=== PATIENT | male | born 1960 | race Caucasian/White ===

== ENCOUNTER 2018-05-08 12:37 | Inpatient (IN) | payer OTHER ==
[2018-05-08] MEDS: LIDOCAINE 2% VISC 15 ML CUP PO (13:33)
[2018-05-08] MEDS: OXYMETAZOLINE 0.05% 15 ML NAS SPRAY NASAL (13:33)
[2018-05-08] MEDS: SOD CHLORIDE 0.9% 1,000 ML IV (14:41)
[2018-05-08 14:54] LABS: ADD MAN DIFF? NO
[2018-05-08 14:58] LABS: WHITE BLOOD COUNT 9.2 10^3/ul (4.8-10.8)
[2018-05-08 14:59] LABS: BASOPHIL # 0.1 10^3/ul (0.0-0.1); BASOPHILS % 0.5 % (0.0-2.0); EOSINOPHILS % 0.2 % (0.0-7.0); HEMATOCRIT 38.6 % (42.0-52.0); HEMOGLOBIN 13.4 g/dl (14.0-18.0); MEAN CORPUSCULAR HGB CONC 34.7 g/dl (32.0-37.0); MEAN CORPUSCULAR VOLUME 95.1 fl (82.0-101.0); MEAN PLATELET VOLUME 9.9 fl (7.4-10.4); MONOCYTE # 0.6 10^3/ul (0.3-0.9); NEUTROPHIL # 4.6 10^3/ul (1.6-7.5); NEUTROPHILS % 50.1 % (39.0-77.0); PLATELET COUNT 225 10^3/UL (140-415); RED BLOOD COUNT 4.06 10^6/ul (4.70-6.10); RED CELL DISTRIBUTION WIDTH 12.9 % (11.5-14.5)
[2018-05-08] MEDS: ONDANSETRON 4 MG INJ IV ×2 (15:07→22:13)
[2018-05-08 15:19] LABS: ALANINE AMINOTRANSFERASE 42 IU/L (13-69); ALBUMIN 4.5 g/dl (3.3-4.9); ALBUMIN/GLOBULIN RATIO 1.07; ALKALINE PHOSPHATASE 117 IU/L (42-121); ANION GAP 21 (8-16); ASPARTATE AMINO TRANSFERASE 105 IU/L (15-46); BILIRUBIN,INDIRECT 0.7 mg/dl (0-1.1); BILIRUBIN,TOTAL 0.7 mg/dl (0.2-1.3); BLOOD UREA NITROGEN 17 mg/dl (7-20); CALCIUM 9.3 mg/dl (8.4-10.2); CARBON DIOXIDE 28 mmol/L (21-31); CHLORIDE 102 mmol/L (97-110); CREATININE 0.59 mg/dl (0.61-1.24); GLUCOSE 126 mg/dl (70-220); LIPASE 94 U/L (23-300); POTASSIUM 3.5 mmol/L (3.5-5.1); SODIUM 147 mmol/L (135-144); TOTAL PROTEIN 8.7 g/dl (6.1-8.1)
[2018-05-08] MEDS ORDERED: ACETAMINOPHEN 325 MG TAB PO (15:30)
[2018-05-08] MEDS ORDERED: ONDANSETRON 4 MG INJ IV (15:30)
[2018-05-08] MEDS ORDERED: NACL 0.9% 3 ML SYG IV (19:30)
[2018-05-08] MEDS ORDERED: DOCUSATE SODIUM 100 MG CAP PO (19:30)
[2018-05-08] MEDS: HYDROCODONE/APAP (5/325) TAB PO (21:23)
[2018-05-08] MEDS: 1/2 NS + KCL 20 MEQ 1,000 ML IV (21:24)
[2018-05-08] MEDS: ATENOLOL 25 MG TAB PO (21:24)
[2018-05-08] MEDS: morphine 2 MG INJ IV (23:25)
[2018-05-09] MEDS: HYDROCODONE/APAP (5/325) TAB PO (02:17)
[2018-05-09] MEDS: ONDANSETRON 4 MG INJ IV (02:20)
[2018-05-09] MEDS: LORAZEPAM 2 MG INJ IV (02:56)
[2018-05-09] MEDS: ACETAMINOPHEN 325 MG TAB PO ×2 (05:24→19:54)
[2018-05-09] MEDS: 1/2 NS + KCL 20 MEQ 1,000 ML IV ×2 (05:25→18:27)
[2018-05-09] MEDS ORDERED: OXYMETAZOLINE 0.05% 15 ML NAS SPRAY NASAL (06:00)
[2018-05-09] MEDS: PANTOPRAZOLE (EC) 40 MG TAB PO (06:24)
[2018-05-09 09:11] LABS: ADD MAN DIFF? NO
[2018-05-09 09:13] LABS: BASOPHILS % 0.1 % (0.0-2.0); HEMATOCRIT 33.7 % (42.0-52.0); HEMOGLOBIN 11.8 g/dl (14.0-18.0); LYMPHOCYTES # 1.7 10^3/ul (0.8-2.9); LYMPHOCYTES % 20.7 % (15.0-51.0); MEAN CORPUSCULAR HEMOGLOBIN 33.7 pg (29.0-33.0); MEAN CORPUSCULAR VOLUME 96.3 fl (82.0-101.0); MEAN PLATELET VOLUME 10.5 fl (7.4-10.4); MONOCYTE # 0.5 10^3/ul (0.3-0.9); MONOCYTES % 6.3 % (0.0-11.0); NEUTROPHIL # 5.8 10^3/ul (1.6-7.5); NEUTROPHILS % 72.2 % (39.0-77.0); PLATELET COUNT 198 10^3/UL (140-415); RED CELL DISTRIBUTION WIDTH 12.3 % (11.5-14.5)
[2018-05-09 09:13] LABS: WHITE BLOOD COUNT 8.1 10^3/ul (4.8-10.8)
[2018-05-09 09:32] LABS: HEMOGLOBIN A1C 5.7 % (0-5.9)
[2018-05-09] MEDS: METOCLOPRAMIDE 10 MG INJ IV (09:32)
[2018-05-09] MEDS: ATENOLOL 25 MG TAB PO ×2 (09:33→21:14)
[2018-05-09 10:00] LABS: ANION GAP 22 (8-16); BLOOD UREA NITROGEN 13 mg/dl (7-20); CALCIUM 9.1 mg/dl (8.4-10.2); CARBON DIOXIDE 26 mmol/L (21-31); CHLORIDE 96 mmol/L (97-110); CREATININE 0.55 mg/dl (0.61-1.24); GLUCOSE 155 mg/dl (70-220); POTASSIUM 3.6 mmol/L (3.5-5.1); SODIUM 140 mmol/L (135-144)
[2018-05-09 10:03] LABS: MAGNESIUM 0.9 mg/dl (1.7-2.5)
[2018-05-09 10:10] LABS: T3 UPTAKE 29.2 % (23.5-40.5); T4 (THYROXINE) 6.5 ug/dl (5.5-11.0)
[2018-05-09] MEDS: PANTOPRAZOLE IV 80 MG in SOD CHLORIDE 0.9% 100 ML IVPB (10:51)
[2018-05-09] MEDS: OCTREOTIDE 1 MG in SOD CHLORIDE 0.9% 95 ML IV (11:25)
[2018-05-09] MEDS: ONDANSETRON INJ 8 MG in DEXTROSE 5% 50 ML IV ×3 (11:30→21:19)
[2018-05-09] MEDS: PANTOPRAZOLE IV 80 MG in SOD CHLORIDE 0.9% 100 ML IV ×2 (11:42→20:27)
[2018-05-09 11:59] LABS: INR 1.11; PROTIME 14.5 Sec (11.9-14.9); PT RATIO 1.1
[2018-05-09 12:00] LABS: PARTIAL THROMBOPLASTIN TIME 30.9 Sec (25.0-35.0)
[2018-05-09 12:59] LABS: PLATELET COUNT 185 10^3/UL (140-415)
[2018-05-09] MEDS: MAGNESIUM SULFATE 3 GM in DEXTROSE 5% 100 ML IVPB (13:24)
[2018-05-09] MEDS ORDERED: morphine LIQ (10 MG/5 ML) CUP PO (19:00)
[2018-05-09] MEDS: DOCUSATE SODIUM 100 MG CAP PO ×2 (21:11→21:20)
[2018-05-09] MEDS: ZOLPIDEM 5 MG TAB PO (22:38)
[2018-05-10] MEDS: 1/2 NS + KCL 20 MEQ 1,000 ML IV (01:07)
[2018-05-10] MEDS: ONDANSETRON INJ 8 MG in DEXTROSE 5% 50 ML IV ×2 (03:30→08:59)
[2018-05-10] MEDS: PANTOPRAZOLE IV 80 MG in SOD CHLORIDE 0.9% 100 ML IV ×2 (06:35→17:34)
[2018-05-10] MEDS ORDERED: SUCCINYLCHOLINE CHLORIDE 100 MG/5 ML SYG IV (07:00)
[2018-05-10] MEDS ORDERED: ETOMIDATE 20 MG INJ (07:00)
[2018-05-10] MEDS: ATENOLOL 25 MG TAB PO ×2 (08:57→21:00)
[2018-05-10] MEDS: DOCUSATE SODIUM 100 MG CAP PO ×2 (08:57→21:20)
[2018-05-10 09:44] LABS: ADD MAN DIFF? NO
[2018-05-10 09:49] LABS: BASOPHILS % 0.3 % (0.0-2.0); HEMOGLOBIN 10.9 g/dl (14.0-18.0); LYMPHOCYTES % 14.9 % (15.0-51.0); MEAN CORPUSCULAR HEMOGLOBIN 33.3 pg (29.0-33.0); MEAN CORPUSCULAR HGB CONC 34.1 g/dl (32.0-37.0); MEAN CORPUSCULAR VOLUME 97.9 fl (82.0-101.0); MEAN PLATELET VOLUME 10.9 fl (7.4-10.4); MONOCYTE # 0.6 10^3/ul (0.3-0.9); MONOCYTES % 8.6 % (0.0-11.0); NEUTROPHIL # 4.9 10^3/ul (1.6-7.5); NEUTROPHILS % 75.7 % (39.0-77.0); PLATELET COUNT 162 10^3/UL (140-415); RED BLOOD COUNT 3.27 10^6/ul (4.70-6.10); RED CELL DISTRIBUTION WIDTH 12.3 % (11.5-14.5)
[2018-05-10 09:49] LABS: WHITE BLOOD COUNT 6.5 10^3/ul (4.8-10.8)
[2018-05-10] MEDS: LORAZEPAM 2 MG INJ IV ×3 (09:54→14:02)
[2018-05-10 10:11] LABS: ALANINE AMINOTRANSFERASE 48 IU/L (13-69); ALBUMIN 3.9 g/dl (3.3-4.9); ALBUMIN/GLOBULIN RATIO 1.08; ALKALINE PHOSPHATASE 74 IU/L (42-121); ANION GAP 14 (8-16); ASPARTATE AMINO TRANSFERASE 80 IU/L (15-46); BILIRUBIN,INDIRECT 1.7 mg/dl (0-1.1); BILIRUBIN,TOTAL 1.7 mg/dl (0.2-1.3); BLOOD UREA NITROGEN 14 mg/dl (7-20); CALCIUM 8.9 mg/dl (8.4-10.2); CARBON DIOXIDE 32 mmol/L (21-31); CHLORIDE 95 mmol/L (97-110); GLUCOSE 106 mg/dl (70-220); POTASSIUM 3.7 mmol/L (3.5-5.1); SODIUM 137 mmol/L (135-144); TOTAL PROTEIN 7.5 g/dl (6.1-8.1)
[2018-05-10 10:33] LABS: MAGNESIUM 1.8 mg/dl (1.7-2.5)
[2018-05-10] MEDS: CHLORDIAZEPOXIDE 25 MG CAP PO (10:43)
[2018-05-10] MEDS: MULTIVITAMINS 10 ML, THIAMINE 100 MG, FOLIC ACID 1 MG in SOD CHLORIDE 0.9% 1,000 ML IV (11:59)
[2018-05-10] MEDS: HALOPERIDOL 5 MG INJ IM (12:06)
[2018-05-10] MEDS: MIDAZOLAM (DRIP) 50 mg/50 mL 50 ML IV ×2 (14:55→21:16)
[2018-05-10] MEDS: NS + KCL 20 MEQ 1,000 ML IV (15:00)
[2018-05-10] MEDS ORDERED: ONDANSETRON INJ 8 MG in DEXTROSE 5% 50 ML IV (15:00)
[2018-05-10] MEDS: PROPOFOL 100 ML IV ×2 (16:07→19:59)
[2018-05-10 16:19] LABS: AADO2 Arterial 205.2 mmHg (7.0-24.0); Allen Test ACCEPTAB; Arterial Base Excess 2.3 mmol/L (-3.0-3); Arterial Blood Gas Oxygen Sat 99.6 mmHG (95.0-98.0); Arterial COHb 0.4 % (0.0-3.0); Arterial HCO3 25.5 mmol/L (22.0-26.0); Arterial MetHb 0.2 % (0.0-1.5); Arterial pCO2 35.1 mmhg (35-45); MODE VENT - AC; Site Right Radial
[2018-05-11] MEDS: NS + KCL 20 MEQ 1,000 ML IV ×3 (00:28→17:07)
[2018-05-11] MEDS: PROPOFOL 100 ML IV ×4 (00:28→19:13)
[2018-05-11] MEDS: PANTOPRAZOLE IV 80 MG in SOD CHLORIDE 0.9% 100 ML IV (03:22)
[2018-05-11] MEDS: MIDAZOLAM (DRIP) 50 mg/50 mL 50 ML IV ×3 (05:36→19:32)
[2018-05-11 05:39] LABS: ADD MAN DIFF? NO
[2018-05-11 05:42] LABS: BASOPHILS % 0.2 % (0.0-2.0); EOSINOPHILS % 0.2 % (0.0-7.0); HEMATOCRIT 31.7 % (42.0-52.0); HEMOGLOBIN 10.8 g/dl (14.0-18.0); LYMPHOCYTES # 0.9 10^3/ul (0.8-2.9); LYMPHOCYTES % 13.1 % (15.0-51.0); MEAN CORPUSCULAR HEMOGLOBIN 33.8 pg (29.0-33.0); MEAN CORPUSCULAR HGB CONC 34.1 g/dl (32.0-37.0); MEAN CORPUSCULAR VOLUME 99.1 fl (82.0-101.0); MEAN PLATELET VOLUME 10.5 fl (7.4-10.4); MONOCYTE # 0.6 10^3/ul (0.3-0.9); MONOCYTES % 9.6 % (0.0-11.0); NEUTROPHIL # 5.1 10^3/ul (1.6-7.5); NEUTROPHILS % 76.3 % (39.0-77.0); PLATELET COUNT 134 10^3/UL (140-415); RED CELL DISTRIBUTION WIDTH 12.6 % (11.5-14.5)
[2018-05-11 05:42] LABS: WHITE BLOOD COUNT 6.7 10^3/ul (4.8-10.8)
[2018-05-11 06:08] LABS: MAGNESIUM 1.9 mg/dl (1.7-2.5)
[2018-05-11 06:13] LABS: ALANINE AMINOTRANSFERASE 52 IU/L (13-69); ALBUMIN 3.5 g/dl (3.3-4.9); ALBUMIN/GLOBULIN RATIO 1.12; ALKALINE PHOSPHATASE 67 IU/L (42-121); ANION GAP 14 (8-16); ASPARTATE AMINO TRANSFERASE 109 IU/L (15-46); BILIRUBIN,INDIRECT 0.9 mg/dl (0-1.1); BILIRUBIN,TOTAL 0.9 mg/dl (0.2-1.3); BLOOD UREA NITROGEN 18 mg/dl (7-20); CALCIUM 8.5 mg/dl (8.4-10.2); CARBON DIOXIDE 27 mmol/L (21-31); CHLORIDE 104 mmol/L (97-110); CREATININE 0.68 mg/dl (0.61-1.24); GLUCOSE 82 mg/dl (70-220); POTASSIUM 3.1 mmol/L (3.5-5.1); SODIUM 142 mmol/L (135-144); TOTAL PROTEIN 6.6 g/dl (6.1-8.1)
[2018-05-11] MEDS: POTASSIUM CHLORIDE 100 ML IVPB ×2 (08:20→10:16)
[2018-05-11] MEDS: MAGNESIUM SULFATE 1 GM/D5W 100 ML IVPB (08:20)
[2018-05-11] MEDS: MULTIVITAMINS 10 ML, THIAMINE 100 MG, FOLIC ACID 1 MG in SOD CHLORIDE 0.9% 1,000 ML IV (11:19)
[2018-05-11] MEDS: DOCUSATE SODIUM 100 MG CAP PO ×2 (11:20→21:29)
[2018-05-11] MEDS: ATENOLOL 25 MG TAB PO ×2 (11:20→21:29)
[2018-05-11] MEDS: CHLORDIAZEPOXIDE 25 MG CAP PO ×2 (12:43→21:29)
[2018-05-11] MEDS ORDERED: CHLORDIAZEPOXIDE 25 MG CAP PO (13:00)
[2018-05-11 14:52] LABS: ANION GAP 12 (8-16); BLOOD UREA NITROGEN 14 mg/dl (7-20); CALCIUM 8.4 mg/dl (8.4-10.2); CARBON DIOXIDE 27 mmol/L (21-31); CHLORIDE 104 mmol/L (97-110); CREATININE 0.59 mg/dl (0.61-1.24); GLUCOSE 99 mg/dl (70-220); POTASSIUM 3.2 mmol/L (3.5-5.1); SODIUM 140 mmol/L (135-144)
[2018-05-11] MEDS: PANTOPRAZOLE 40 MG INJ IV (17:07)
[2018-05-11 20:48] LABS: ANION GAP 11 (8-16); BLOOD UREA NITROGEN 11 mg/dl (7-20); CALCIUM 8.5 mg/dl (8.4-10.2); CARBON DIOXIDE 27 mmol/L (21-31); CHLORIDE 104 mmol/L (97-110); CREATININE 0.53 mg/dl (0.61-1.24); GLUCOSE 100 mg/dl (70-220); POTASSIUM 3.4 mmol/L (3.5-5.1); SODIUM 139 mmol/L (135-144)
[2018-05-11] MEDS: POTASSIUM CHLORIDE 50 ML IVPB ×2 (21:42→23:41)
[2018-05-12] MEDS: MIDAZOLAM (DRIP) 50 mg/50 mL 50 ML IV ×5 (00:51→22:12)
[2018-05-12] MEDS: NS + KCL 20 MEQ 1,000 ML IV ×3 (00:52→20:05)
[2018-05-12] MEDS: PROPOFOL 100 ML IV ×2 (04:54→20:35)
[2018-05-12 05:08] LABS: ADD MAN DIFF? NO
[2018-05-12 05:14] LABS: BASOPHILS % 0.3 % (0.0-2.0); EOSINOPHILS % 0.7 % (0.0-7.0); HEMOGLOBIN 10.7 g/dl (14.0-18.0); MEAN CORPUSCULAR HEMOGLOBIN 34.1 pg (29.0-33.0); MEAN CORPUSCULAR HGB CONC 34.5 g/dl (32.0-37.0); MEAN CORPUSCULAR VOLUME 98.7 fl (82.0-101.0); MEAN PLATELET VOLUME 10.6 fl (7.4-10.4); MONOCYTE # 0.7 10^3/ul (0.3-0.9); MONOCYTES % 10.9 % (0.0-11.0); NEUTROPHIL # 4.2 10^3/ul (1.6-7.5); NEUTROPHILS % 70.8 % (39.0-77.0); PLATELET COUNT 120 10^3/UL (140-415); RED BLOOD COUNT 3.14 10^6/ul (4.70-6.10); RED CELL DISTRIBUTION WIDTH 12.7 % (11.5-14.5)
[2018-05-12 05:40] LABS: ANION GAP 13 (8-16); BLOOD UREA NITROGEN 7 mg/dl (7-20); CALCIUM 8.4 mg/dl (8.4-10.2); CARBON DIOXIDE 27 mmol/L (21-31); CHLORIDE 104 mmol/L (97-110); CREATININE 0.54 mg/dl (0.61-1.24); GLUCOSE 106 mg/dl (70-220); POTASSIUM 3.4 mmol/L (3.5-5.1); SODIUM 141 mmol/L (135-144)
[2018-05-12 05:56] LABS: MAGNESIUM 1.6 mg/dl (1.7-2.5)
[2018-05-12] MEDS: PANTOPRAZOLE 40 MG INJ IV ×2 (06:20→17:18)
[2018-05-12] MEDS: DOCUSATE SODIUM 100 MG CAP PO ×2 (07:30→20:05)
[2018-05-12] MEDS: POTASSIUM CHLORIDE 50 ML IVPB ×2 (08:11→13:05)
[2018-05-12] MEDS: MAGNESIUM SULFATE 2 GM/50 ML 50 ML IVPB (08:11)
[2018-05-12] MEDS: CHLORDIAZEPOXIDE 25 MG CAP PO ×3 (08:11→20:05)
[2018-05-12] MEDS: ATENOLOL 25 MG TAB PO ×2 (08:12→20:06)
[2018-05-12] MEDS: ACETAMINOPHEN 325 MG TAB PO ×2 (08:12→14:10)
[2018-05-12] MEDS: MULTIVITAMINS 10 ML, THIAMINE 100 MG, FOLIC ACID 1 MG in SOD CHLORIDE 0.9% 1,000 ML IV (08:44)
[2018-05-12] MEDS: POTASSIUM CHLORIDE (SR) 20 MEQ TAB PO (08:48)
[2018-05-12] MEDS: LORAZEPAM 2 MG INJ IV (11:53)
[2018-05-12] MEDS: PIPER-TAZO 3.375 GM IV (PMX) 100 ML IVPB ×3 (13:05→21:13)
[2018-05-12] MEDS: MAGNESIUM HYDROXIDE 30ML CUP PO (17:19)
[2018-05-13] MEDS: MIDAZOLAM (DRIP) 50 mg/50 mL 50 ML IV ×2 (03:07→08:02)
[2018-05-13] MEDS: PANTOPRAZOLE 40 MG INJ IV ×2 (05:10→18:54)
[2018-05-13] MEDS: PIPER-TAZO 3.375 GM IV (PMX) 100 ML IVPB ×3 (05:10→21:24)
[2018-05-13] MEDS: PROPOFOL 100 ML IV ×2 (06:18→19:38)
[2018-05-13 06:19] LABS: ADD MAN DIFF? NO; BASOPHILS % 0.1 % (0.0-2.0); EOSINOPHILS % 0.1 % (0.0-7.0); LYMPHOCYTES # 0.8 10^3/ul (0.8-2.9); LYMPHOCYTES % 9.9 % (15.0-51.0); MEAN CORPUSCULAR HEMOGLOBIN 33.6 pg (29.0-33.0); MEAN CORPUSCULAR HGB CONC 34.5 g/dl (32.0-37.0); MEAN CORPUSCULAR VOLUME 97.3 fl (82.0-101.0); MEAN PLATELET VOLUME 10.7 fl (7.4-10.4); MONOCYTE # 0.7 10^3/ul (0.3-0.9); MONOCYTES % 8.9 % (0.0-11.0); NEUTROPHIL # 6.7 10^3/ul (1.6-7.5); NEUTROPHILS % 80.6 % (39.0-77.0); PLATELET COUNT 138 10^3/UL (140-415); RED BLOOD COUNT 2.98 10^6/ul (4.70-6.10); RED CELL DISTRIBUTION WIDTH 12.8 % (11.5-14.5)
[2018-05-13 06:19] LABS: WHITE BLOOD COUNT 8.3 10^3/ul (4.8-10.8)
[2018-05-13 06:45] LABS: ANION GAP 10 (8-16); BLOOD UREA NITROGEN 7 mg/dl (7-20); CALCIUM 8.3 mg/dl (8.4-10.2); CARBON DIOXIDE 30 mmol/L (21-31); CHLORIDE 99 mmol/L (97-110); CREATININE 0.59 mg/dl (0.61-1.24); GLUCOSE 111 mg/dl (70-220); MAGNESIUM 1.5 mg/dl (1.7-2.5); POTASSIUM 3.4 mmol/L (3.5-5.1); SODIUM 136 mmol/L (135-144)
[2018-05-13] MEDS: NS + KCL 20 MEQ 1,000 ML IV ×2 (07:33→21:02)
[2018-05-13] MEDS: DOCUSATE SODIUM 100 MG CAP PO ×2 (09:32→19:30)
[2018-05-13] MEDS: MULTIVITAMINS 10 ML, THIAMINE 100 MG, FOLIC ACID 1 MG in SOD CHLORIDE 0.9% 1,000 ML IV (09:32)
[2018-05-13] MEDS: CHLORDIAZEPOXIDE 25 MG CAP PO ×3 (09:32→21:23)
[2018-05-13] MEDS: ATENOLOL 25 MG TAB PO ×2 (09:32→21:23)
[2018-05-13] MEDS: LORAZEPAM 2 MG INJ IV ×3 (14:17→19:28)
[2018-05-13] MEDS ORDERED: VANCOMYCIN 1 GM (PMX) 250 ML IVPB (15:00)
[2018-05-13] MEDS ORDERED: VANCOMYCIN IV PER PHARMACY XX (15:00)
[2018-05-13 15:35] LABS: LACTIC ACID 1.4 mmol/L (0.5-2.0)
[2018-05-13] MEDS: ACETAMINOPHEN 325 MG TAB PO (15:36)
[2018-05-13] MEDS: MAGNESIUM SULFATE 2 GM/50 ML 50 ML IVPB (15:58)
[2018-05-13] MEDS: POTASSIUM CHLORIDE 100 ML IVPB ×3 (15:59→21:00)
[2018-05-13] MEDS: VANCOMYCIN 1.25 GM in SOD CHLORIDE 0.9% 250 ML IVPB (17:51)
[2018-05-14] MEDS: MIDAZOLAM (DRIP) 50 mg/50 mL 50 ML IV ×2 (01:43→19:25)
[2018-05-14] MEDS: PROPOFOL 100 ML IV ×2 (03:27→18:38)
[2018-05-14 04:00] LABS: ADD MAN DIFF? NO
[2018-05-14 04:10] LABS: ABNORMAL IP MESSAGE 1; BASOPHILS % 0.3 % (0.0-2.0); EOSINOPHILS # 0.1 10^3/ul (0.0-0.5); EOSINOPHILS % 1.1 % (0.0-7.0); HEMATOCRIT 28.1 % (42.0-52.0); HEMOGLOBIN 9.4 g/dl (14.0-18.0); LYMPHOCYTES # 0.5 10^3/ul (0.8-2.9); LYMPHOCYTES % 6.8 % (15.0-51.0); MEAN CORPUSCULAR HEMOGLOBIN 32.8 pg (29.0-33.0); MEAN CORPUSCULAR HGB CONC 33.5 g/dl (32.0-37.0); MEAN CORPUSCULAR VOLUME 97.9 fl (82.0-101.0); MEAN PLATELET VOLUME 10.7 fl (7.4-10.4); MONOCYTE # 1.1 10^3/ul (0.3-0.9); MONOCYTES % 13.2 % (0.0-11.0); NEUTROPHIL # 6.2 10^3/ul (1.6-7.5); NEUTROPHILS % 78.2 % (39.0-77.0); PLATELET COUNT 150 10^3/UL (140-415); POSITIVE DIFF @See below; RED BLOOD COUNT 2.87 10^6/ul (4.70-6.10)
[2018-05-14 04:20] LABS: POTASSIUM 3.6 mmol/L (3.5-5.1)
[2018-05-14 04:23] LABS: ANION GAP 9 (8-16); BLOOD UREA NITROGEN 8 mg/dl (7-20); CALCIUM 8.7 mg/dl (8.4-10.2); CARBON DIOXIDE 30 mmol/L (21-31); CHLORIDE 103 mmol/L (97-110); CREATININE 0.48 mg/dl (0.61-1.24); GLUCOSE 131 mg/dl (70-220); POTASSIUM 3.5 mmol/L (3.5-5.1); SODIUM 138 mmol/L (135-144)
[2018-05-14] MEDS: PIPER-TAZO 3.375 GM IV (PMX) 100 ML IVPB ×3 (05:14→22:05)
[2018-05-14] MEDS: VANCOMYCIN 750 MG in SOD CHLORIDE 0.9% 150 ML IVPB ×2 (05:14→18:00)
[2018-05-14] MEDS: PANTOPRAZOLE 40 MG INJ IV ×2 (05:14→18:55)
[2018-05-14] MEDS: DOCUSATE SODIUM 100 MG CAP PO ×2 (07:30→19:30)
[2018-05-14] MEDS: ATENOLOL 25 MG TAB PO ×2 (09:43→20:08)
[2018-05-14] MEDS: POTASSIUM CHLORIDE 20 MEQ POWDER FOR ORAL SOLN NGT (09:43)
[2018-05-14] MEDS: CHLORDIAZEPOXIDE 25 MG CAP PO ×3 (09:44→20:06)
[2018-05-14] MEDS: MAGNESIUM SULFATE 2 GM/50 ML 50 ML IVPB (09:44)
[2018-05-14] MEDS: THIAMINE 100 MG TAB NGT (09:45)
[2018-05-14 10:13] LABS: HEPATITIS B SURFACE ANTIGEN NEGATIVE (NEGATIVE)
[2018-05-14] MEDS: NS + KCL 20 MEQ 1,000 ML IV ×2 (10:13→23:41)
[2018-05-14 10:28] LABS: HEPATITIS B SURFACE ANTIBODY NEGATIVE (NEGATIVE)
[2018-05-14 10:29] LABS: HEPATITIS C VIRAL ANTIBODY NEGATIVE (NEGATIVE)
[2018-05-14] MEDS: ACETAMINOPHEN 325 MG TAB PO (11:05)
[2018-05-14] MEDS: LORAZEPAM 2 MG INJ IV (12:02)
[2018-05-15] MEDS: PROPOFOL 100 ML IV ×2 (00:51→15:18)
[2018-05-15] MEDS: MIDAZOLAM (DRIP) 50 mg/50 mL 50 ML IV ×2 (01:58→17:32)
[2018-05-15 04:26] LABS: ADD MAN DIFF? NO
[2018-05-15 04:30] LABS: BASOPHILS % 0.3 % (0.0-2.0); EOSINOPHILS # 0.2 10^3/ul (0.0-0.5); EOSINOPHILS % 2.1 % (0.0-7.0); HEMATOCRIT 29.2 % (42.0-52.0); HEMOGLOBIN 9.9 g/dl (14.0-18.0); LYMPHOCYTES # 0.7 10^3/ul (0.8-2.9); LYMPHOCYTES % 9.5 % (15.0-51.0); MEAN CORPUSCULAR HEMOGLOBIN 33.8 pg (29.0-33.0); MEAN CORPUSCULAR HGB CONC 33.9 g/dl (32.0-37.0); MEAN CORPUSCULAR VOLUME 99.7 fl (82.0-101.0); MEAN PLATELET VOLUME 10.3 fl (7.4-10.4); NEUTROPHIL # 5.3 10^3/ul (1.6-7.5); NEUTROPHILS % 73.4 % (39.0-77.0); PLATELET COUNT 194 10^3/UL (140-415); RED BLOOD COUNT 2.93 10^6/ul (4.70-6.10)
[2018-05-15 04:30] LABS: WHITE BLOOD COUNT 7.2 10^3/ul (4.8-10.8)
[2018-05-15 04:49] LABS: MAGNESIUM 1.9 mg/dl (1.7-2.5)
[2018-05-15 04:50] LABS: ALANINE AMINOTRANSFERASE 58 IU/L (13-69); ALBUMIN 3.2 g/dl (3.3-4.9); ALBUMIN/GLOBULIN RATIO 0.94; ALKALINE PHOSPHATASE 100 IU/L (42-121); ANION GAP 11 (8-16); ASPARTATE AMINO TRANSFERASE 61 IU/L (15-46); BILIRUBIN,INDIRECT 0.5 mg/dl (0-1.1); BILIRUBIN,TOTAL 0.5 mg/dl (0.2-1.3); BLOOD UREA NITROGEN 10 mg/dl (7-20); CARBON DIOXIDE 28 mmol/L (21-31); CHLORIDE 102 mmol/L (97-110); CREATININE 0.55 mg/dl (0.61-1.24); GLUCOSE 137 mg/dl (70-220); POTASSIUM 3.7 mmol/L (3.5-5.1); SODIUM 137 mmol/L (135-144); TOTAL PROTEIN 6.6 g/dl (6.1-8.1)
[2018-05-15 04:56] LABS: VANCOMYCIN,RANDOM < 5.0 ug/ml
[2018-05-15] MEDS: VANCOMYCIN 750 MG in SOD CHLORIDE 0.9% 150 ML IVPB (05:06)
[2018-05-15] MEDS: PANTOPRAZOLE 40 MG INJ IV ×2 (06:03→17:32)
[2018-05-15] MEDS: PIPER-TAZO 3.375 GM IV (PMX) 100 ML IVPB ×3 (06:03→22:08)
[2018-05-15] MEDS: DOCUSATE SODIUM 100 MG CAP PO ×2 (07:30→19:30)
[2018-05-15] MEDS: ATENOLOL 25 MG TAB PO ×2 (08:05→21:20)
[2018-05-15] MEDS: THIAMINE 100 MG TAB NGT (08:05)
[2018-05-15] MEDS: CHLORDIAZEPOXIDE 25 MG CAP PO ×3 (08:05→21:20)
[2018-05-15] MEDS: MAGNESIUM SULFATE 2 GM/50 ML 50 ML IVPB (08:18)
[2018-05-15] MEDS: POTASSIUM CHLORIDE 100 ML IVPB ×2 (08:19→10:38)
[2018-05-15 08:21] LABS: ADD UMIC NO; UR ASCORBIC ACID NEGATIVE (NEGATIVE); UR BILIRUBIN (Dip) NEGATIVE (NEGATIVE); UR BLOOD (Dip) NEGATIVE (NEGATIVE); UR CLARITY CLEAR (CLEAR); UR COLOR YELLOW (YELLOW); UR GLUCOSE (Dip) NEGATIVE (NEGATIVE); UR KETONES (Dip) NEGATIVE (NEGATIVE); UR LEUKOCYTE ESTERASE (Dip) NEGATIVE Leu/ul (NEGATIVE); UR NITRITE (Dip) NEGATIVE (NEGATIVE); UR SPECIFIC GRAVITY (Dip) 1.017 (1.003-1.030); UR TOTAL PROTEIN (Dip) NEGATIVE (NEGATIVE); UR UROBILINOGEN (Dip) 1+ mg/dL (NEGATIVE)
[2018-05-15] MEDS ORDERED: VANCOMYCIN 750 MG in SOD CHLORIDE 0.9% 150 ML IVPB (13:00)
[2018-05-15] MEDS: VANCOMYCIN 1 GM 250 ML IVPB ×2 (13:27→21:21)
[2018-05-15] MEDS: NS + KCL 20 MEQ 1,000 ML IV (13:40)
[2018-05-16 05:49] LABS: MAGNESIUM 1.7 mg/dl (1.7-2.5)
[2018-05-16 05:51] LABS: ANION GAP 10 (8-16); BLOOD UREA NITROGEN 8 mg/dl (7-20); CALCIUM 9.1 mg/dl (8.4-10.2); CARBON DIOXIDE 28 mmol/L (21-31); CHLORIDE 104 mmol/L (97-110); CREATININE 0.55 mg/dl (0.61-1.24); GLUCOSE 123 mg/dl (70-220); SODIUM 138 mmol/L (135-144)
[2018-05-16] MEDS: NS + KCL 20 MEQ 1,000 ML IV (06:08)
[2018-05-16] MEDS: PIPER-TAZO 3.375 GM IV (PMX) 100 ML IVPB ×3 (06:09→22:06)
[2018-05-16] MEDS: PROPOFOL 100 ML IV ×3 (06:09→20:49)
[2018-05-16] MEDS: PANTOPRAZOLE 40 MG INJ IV ×2 (06:09→17:29)
[2018-05-16] MEDS: VANCOMYCIN 1 GM 250 ML IVPB ×3 (06:09→20:50)
[2018-05-16] MEDS: DOCUSATE SODIUM 100 MG CAP PO ×2 (07:30→20:49)
[2018-05-16 07:41] LABS: ADD MAN DIFF? NO
[2018-05-16 07:45] LABS: BASOPHILS % 0.3 % (0.0-2.0); EOSINOPHILS # 0.1 10^3/ul (0.0-0.5); EOSINOPHILS % 0.9 % (0.0-7.0); HEMATOCRIT 29.4 % (42.0-52.0); HEMOGLOBIN 9.9 g/dl (14.0-18.0); LYMPHOCYTES # 0.8 10^3/ul (0.8-2.9); LYMPHOCYTES % 11.2 % (15.0-51.0); MEAN CORPUSCULAR HEMOGLOBIN 33.4 pg (29.0-33.0); MEAN CORPUSCULAR HGB CONC 33.7 g/dl (32.0-37.0); MEAN CORPUSCULAR VOLUME 99.3 fl (82.0-101.0); MEAN PLATELET VOLUME 10.7 fl (7.4-10.4); NEUTROPHIL # 4.9 10^3/ul (1.6-7.5); NEUTROPHILS % 71.9 % (39.0-77.0); PLATELET COUNT 282 10^3/UL (140-415); RED BLOOD COUNT 2.96 10^6/ul (4.70-6.10); RED CELL DISTRIBUTION WIDTH 12.9 % (11.5-14.5)
[2018-05-16 07:45] LABS: WHITE BLOOD COUNT 6.8 10^3/ul (4.8-10.8)
[2018-05-16] MEDS: LORAZEPAM 2 MG INJ IV (08:31)
[2018-05-16] MEDS: MIDAZOLAM (DRIP) 50 mg/50 mL 50 ML IV (08:53)
[2018-05-16] MEDS: CHLORDIAZEPOXIDE 25 MG CAP PO ×2 (09:16→13:32)
[2018-05-16] MEDS: THIAMINE 100 MG TAB NGT (09:17)
[2018-05-16] MEDS: ATENOLOL 25 MG TAB PO ×2 (09:17→20:50)
[2018-05-16 13:01] LABS: VANCOMYCIN,TROUGH 11.5 ug/ml (10.0-20.0)
[2018-05-16] MEDS: DEXMEDETOMIDINE HCL 200 MCG in SOD CHLORIDE 0.9% 48 ML IV ×2 (14:11→22:01)
[2018-05-16] MEDS: FUROSEMIDE 20 MG INJ IV (14:36)
[2018-05-16] MEDS: HEPARIN 5,000 UNIT/0.5 ML VIAL SC (20:52)
[2018-05-17] MEDS: FUROSEMIDE 20 MG INJ IV ×2 (03:33→13:50)
[2018-05-17] MEDS: DEXMEDETOMIDINE HCL 200 MCG in SOD CHLORIDE 0.9% 48 ML IV ×2 (03:33→08:22)
[2018-05-17 05:23] LABS: ADD MAN DIFF? NO
[2018-05-17 05:31] LABS: WHITE BLOOD COUNT 8.7 10^3/ul (4.8-10.8)
[2018-05-17 05:31] LABS: BASOPHIL # 0.1 10^3/ul (0.0-0.1); BASOPHILS % 0.7 % (0.0-2.0); EOSINOPHILS # 0.1 10^3/ul (0.0-0.5); EOSINOPHILS % 1.3 % (0.0-7.0); HEMATOCRIT 31.5 % (42.0-52.0); HEMOGLOBIN 10.5 g/dl (14.0-18.0); LYMPHOCYTES # 1.1 10^3/ul (0.8-2.9); LYMPHOCYTES % 12.8 % (15.0-51.0); MEAN CORPUSCULAR HEMOGLOBIN 32.9 pg (29.0-33.0); MEAN CORPUSCULAR HGB CONC 33.3 g/dl (32.0-37.0); MEAN CORPUSCULAR VOLUME 98.7 fl (82.0-101.0); MEAN PLATELET VOLUME 10.5 fl (7.4-10.4); MONOCYTE # 1.1 10^3/ul (0.3-0.9); MONOCYTES % 12.9 % (0.0-11.0); NEUTROPHIL # 6.2 10^3/ul (1.6-7.5); NEUTROPHILS % 71.6 % (39.0-77.0); PLATELET COUNT 374 10^3/UL (140-415); RED BLOOD COUNT 3.19 10^6/ul (4.70-6.10); RED CELL DISTRIBUTION WIDTH 12.7 % (11.5-14.5)
[2018-05-17] MEDS: PANTOPRAZOLE 40 MG INJ IV ×2 (05:36→17:17)
[2018-05-17] MEDS: VANCOMYCIN 1 GM 250 ML IVPB ×3 (05:36→21:02)
[2018-05-17] MEDS: CEFAZOLIN 1 GM/50 ML (PMX) 50 ML IVPB ×3 (05:36→22:20)
[2018-05-17 05:57] LABS: ANION GAP 14 (8-16); BLOOD UREA NITROGEN 17 mg/dl (7-20); CALCIUM 9.3 mg/dl (8.4-10.2); CARBON DIOXIDE 30 mmol/L (21-31); CHLORIDE 100 mmol/L (97-110); CREATININE 0.88 mg/dl (0.61-1.24); GLUCOSE 168 mg/dl (70-220); POTASSIUM 3.5 mmol/L (3.5-5.1); SODIUM 140 mmol/L (135-144)
[2018-05-17] MEDS: DOCUSATE SODIUM 100 MG CAP PO ×3 (07:30→18:41)
[2018-05-17] MEDS: THIAMINE 100 MG TAB NGT (07:43)
[2018-05-17] MEDS: ATENOLOL 25 MG TAB PO ×2 (07:44→21:02)
[2018-05-17 07:45] LABS: AADO2 Arterial 386.6 mmHg (7.0-24.0); Allen Test ACCEPTAB; Arterial Base Excess 6.4 mmol/L (-3.0-3); Arterial Blood Gas Oxygen Sat 99.3 mmHG (95.0-98.0); Arterial COHb 0.3 % (0.0-3.0); Arterial Fraction of Oxyhgb 98.8 % (93.0-99.0); Arterial HCO3 30.7 mmol/L (22.0-26.0); Arterial MetHb 0.2 % (0.0-1.5); Arterial pCO2 42.7 mmhg (35-45); MODE MASK - NRB; Site Right Radial
[2018-05-17] MEDS: HEPARIN 5,000 UNIT/0.5 ML VIAL SC ×2 (08:24→21:05)
[2018-05-17] MEDS ORDERED: MAGNESIUM SULFATE 1 GM/D5W 100 ML IVPB (10:30)
[2018-05-17 10:31] LABS: AADO2 Arterial 119.9 mmHg (7.0-24.0); Allen Test ACCEPTAB; Arterial Base Excess 5.9 mmol/L (-3.0-3); Arterial COHb 0.3 % (0.0-3.0); Arterial Fraction of Oxyhgb 93.6 % (93.0-99.0); Arterial HCO3 29.5 mmol/L (22.0-26.0); Arterial MetHb 0.1 % (0.0-1.5); Arterial Total Hemglobin 12.1 g/dl (12.0-18.0); Arterial pCO2 39.1 mmhg (35-45); MODE NASAL CANNULA; Site Right Radial
[2018-05-17] MEDS: MAGNESIUM SULFATE 1 GM/D5W 100 ML IVPB (11:02)
[2018-05-17] MEDS: POTASSIUM CHLORIDE 50 ML IVPB ×2 (11:02→12:07)
[2018-05-17] MEDS: MAGNESIUM HYDROXIDE 30ML CUP PO (18:41)
[2018-05-18] MEDS: FUROSEMIDE 20 MG INJ IV (03:00)
[2018-05-18] MEDS: PANTOPRAZOLE 40 MG INJ IV ×2 (05:56→18:03)
[2018-05-18] MEDS: VANCOMYCIN 1 GM 250 ML IVPB (05:57)
[2018-05-18] MEDS: CEFAZOLIN 1 GM/50 ML (PMX) 50 ML IVPB ×3 (05:57→21:34)
[2018-05-18 06:15] LABS: ADD MAN DIFF? NO
[2018-05-18 06:21] LABS: BASOPHIL # 0.1 10^3/ul (0.0-0.1); BASOPHILS % 0.5 % (0.0-2.0); EOSINOPHILS % 0.3 % (0.0-7.0); HEMATOCRIT 32.7 % (42.0-52.0); LYMPHOCYTES # 1.2 10^3/ul (0.8-2.9); LYMPHOCYTES % 12.2 % (15.0-51.0); MEAN CORPUSCULAR HEMOGLOBIN 33.4 pg (29.0-33.0); MEAN CORPUSCULAR HGB CONC 33.6 g/dl (32.0-37.0); MEAN CORPUSCULAR VOLUME 99.4 fl (82.0-101.0); MEAN PLATELET VOLUME 10.2 fl (7.4-10.4); MONOCYTES % 10.7 % (0.0-11.0); NEUTROPHIL # 7.3 10^3/ul (1.6-7.5); NEUTROPHILS % 75.6 % (39.0-77.0); PLATELET COUNT 476 10^3/UL (140-415); RED BLOOD COUNT 3.29 10^6/ul (4.70-6.10); RED CELL DISTRIBUTION WIDTH 12.4 % (11.5-14.5)
[2018-05-18 06:21] LABS: WHITE BLOOD COUNT 9.6 10^3/ul (4.8-10.8)
[2018-05-18 06:40] LABS: VANCOMYCIN,TROUGH 16.7 ug/ml (10.0-20.0)
[2018-05-18 06:55] LABS: ANION GAP 13 (8-16); BLOOD UREA NITROGEN 15 mg/dl (7-20); CALCIUM 9.8 mg/dl (8.4-10.2); CARBON DIOXIDE 33 mmol/L (21-31); CHLORIDE 98 mmol/L (97-110); CREATININE 0.85 mg/dl (0.61-1.24); GLUCOSE 119 mg/dl (70-220); MAGNESIUM 2.1 mg/dl (1.7-2.5); POTASSIUM 3.9 mmol/L (3.5-5.1); SODIUM 140 mmol/L (135-144)
[2018-05-18] MEDS: DOCUSATE SODIUM 100 MG CAP PO ×2 (07:30→18:32)
[2018-05-18] MEDS: THIAMINE 100 MG TAB NGT (08:41)
[2018-05-18] MEDS: ATENOLOL 25 MG TAB PO ×2 (08:42→21:40)
[2018-05-18] MEDS: HEPARIN 5,000 UNIT/0.5 ML VIAL SC ×2 (08:50→21:04)
[2018-05-18] MEDS: ZOLPIDEM 5 MG TAB PO (23:31)
[2018-05-19] MEDS: PANTOPRAZOLE 40 MG INJ IV (05:02)
[2018-05-19] MEDS: LORAZEPAM 2 MG INJ IV (05:02)
[2018-05-19] MEDS: CEFAZOLIN 1 GM/50 ML (PMX) 50 ML IVPB ×2 (05:03→15:05)
[2018-05-19] MEDS: DOCUSATE SODIUM 100 MG CAP PO (07:30)
[2018-05-19] MEDS: HEPARIN 5,000 UNIT/0.5 ML VIAL SC (09:00)
[2018-05-19] MEDS: ATENOLOL 25 MG TAB PO (09:22)
[2018-05-19] MEDS: THIAMINE 100 MG TAB NGT (09:23)
== END 2018-05-19 16:15 | disposition home health service (06) | DRG 377 ==
LOC: ICU 05-10 13:40 → 2NE 05-18 16:45 → E/R 12:37 → TEL 15:11
PROC: 0DJ08ZZ Inspection of Upper Intestinal Tract, Via Natural or Artificial Opening Endoscopic (ICD-10-PCS; principal; 2018-05-10 16:00)
PROC: 2Y41X5Z Packing of Nasal Region using Packing Material (ICD-10-PCS; 2018-05-10 16:00)
PROC: 5A1955Z Respiratory Ventilation, Greater than 96 Consecutive Hours (ICD-10-PCS; 2018-05-10 16:00)
PROC: 0BH17EZ Insertion of Endotracheal Airway into Trachea, Via Natural or Artificial Opening (ICD-10-PCS; 2018-05-10 16:00)
DX: K92.0 Hematemesis (principal); J96.90 Respiratory failure, unspecified, unspecified whether with hypoxia or hypercapnia; G93.40 Encephalopathy, unspecified; J96.00 Acute respiratory failure, unspecified whether with hypoxia or hypercapnia; J15.211 Pneumonia due to Methicillin susceptible Staphylococcus aureus; J69.0 Pneumonitis due to inhalation of food and vomit; E87.1 Hypo-osmolality and hyponatremia; F10.121 Alcohol abuse with intoxication delirium; R04.0 Epistaxis; I10 Essential (primary) hypertension; D64.9 Anemia, unspecified; R45.1 Restlessness and agitation; G89.29 Other chronic pain; K29.70 Gastritis, unspecified, without bleeding; E83.42 Hypomagnesemia; D53.1 Other megaloblastic anemias, not elsewhere classified; R10.13 Epigastric pain; R00.0 Tachycardia, unspecified; D69.6 Thrombocytopenia, unspecified; J34.2 Deviated nasal septum; K76.0 Fatty (change of) liver, not elsewhere classified; B96.89 Other specified bacterial agents as the cause of diseases classified elsewhere; B95.61 Methicillin susceptible Staphylococcus aureus infection as the cause of diseases classified elsewhere; K76.1 Chronic passive congestion of liver
CPT/HCPCS: 31500; 36415; 36600; 71045; 76705; 80048; 80053; 80202; 81003; 82803; 83036; 83605; 83690; 83735; 84100; 84132; 84436; 84443; 84479; 85025; 85049; 85610; 85670; 85730; 86706; 86708; 86803; 86850; 86900; 86901; 87040; 87070; 87086; 87340; 89220; 92610; 93005; 94002; 94003; 94770; 96374; 97161; 99291-25